=== PATIENT | male | born 1945 | race Hispanic/Latino ===

== ENCOUNTER 2018-12-04 09:39 | Day surgery (SDC) | payer MEDICARE, OTHER ==
[2018-12-04 10:55] LABS: INR 1.03 (0.87-1.13)
[2018-12-04 10:57] LABS: Basophils # (Auto) 0.1 K/mm3 (0.0-0.1); Basophils % (Auto) 0.8 % (0.0-1.8); Eosinophils # (Auto) 0.2 K/mm3 (0.0-0.4); Eosinophils % (Auto) 3.1 % (0.0-4.3); Hematocrit 35.7 % (35.5-45.6); Hemoglobin 11.7 gm/dl (11.8-15.2); Lymphocytes # (Auto) 0.7 K/mm3 (1.2-5.4); Lymphocytes % (Auto) 10.2 % (13.4-35.0); Mean Corpuscular HGB Conc 33 % (32-34); Mean Corpuscular Volume 85 fl (84-94); Monocytes # (Auto) 0.7 K/mm3 (0.0-0.8); Monocytes % (Auto) 9.4 % (0.0-7.3); Platelet Count 303 K/mm3 (140-440); Red Blood Count 4.22 M/mm3 (3.65-5.03); Red Cell Distribution Width 16.3 % (13.2-15.2)
[2018-12-04 11:05] LABS: BUN/Creatinine Ratio 15; Blood Urea Nitrogen 16 mg/dL (9-20); Calcium 8.8 mg/dL (8.4-10.2); Hemolysis Index 45
[2018-12-04] MEDS: NACL 0.9% 500 ML 500 ML IV SCH ×2 (11:19→14:30)
[2018-12-04] MEDS ORDERED: HEPARIN/NS 5000 UNIT/500ML(CATH LAB) 1,000 ML IR ONE (13:55)
[2018-12-04] MEDS ORDERED: ANCEF/STERILE WATER 2 GM/20 ML 2 GM/20 ML SYRINGE IV ONE (13:56)
[2018-12-04] MEDS ORDERED: ZOFRAN ONE (14:34)
[2018-12-04] MEDS: VERSED ONE ×2 (14:51→14:58)
[2018-12-04] MEDS: XYLOCAINE 2% INFILTRATI ONE ×2 (14:51→14:58)
[2018-12-04] MEDS: SUBLIMAZE ONE ×2 (14:51→14:58)
[2018-12-04] MEDS: HEPARIN 10,000 UNITS/10 ML ONE ×3 (14:58→15:10)
[2018-12-04] MEDS: NITROGLYCERIN SYRINGE 3 ML ONE ×2 (14:58→15:01)
[2018-12-04] MEDS: CALAN ONE ×2 (14:58→15:01)
--- NOTE | 2018-12-04 16:44 | Operative Report ---
Operative Report Operative Report: EXAM: 1. Ultrasound-guided access of the left radial artery 2. Third order selection of the right superficial femoral artery with angiography of the right lower extremity 3. Third order selection of the left superficial femoral artery with angiography of the left lower extremity DATE: 12/04/18 PSYCHOLOGY ASSISTANT: VAN ELISE MD INDICATION: 73-year-old male with nonpalpable pedal pulses, morbid obesity, venous issues, who presents for lower extremity angiography. MEDICATIONS: Please see nursing report for full details. CONTRAST: Please see laboratory apparatus glass blower report for full details PROCEDURE: The risks, benefits, and alternatives were discussed with the patient and his ; written informed consent was obtained. The left wrist was prepped and draped in a sterile fashion. Under direct ultrasound guidance, the left radial artery was accessed with a 21-gauge point puncture needle. 0.018 inch wire was passed into the radial artery. 4-5 glidesheath slender was passed into the artery. Radial cocktail was administered. Additional 1500 units of heparin was administered. The right superficial femoral artery was then selected with a 4 Pakistani catheter. Digital subtraction angiography was performed demonstrating runoff. Catheter was retracted to the right common femoral artery and repeat angiography was performed. Catheter was retracted to the right common iliac artery and repeat angiography was performed. The left superficial femoral artery was then selected with a 4 Pakistani catheter. Digital subtraction angiography was performed demonstrating runoff. Catheter was retracted to the left common femoral artery and repeat angiography was performed. Catheter was retracted to the left common iliac artery and repeat angiography was performed. All wires, catheters, and sheaths were removed. TR Band was applied, but due to inadequate hemostasis pressure bandage was applied. FINDINGS: RIGHT LOWER EXTREMITY: The right common iliac artery, external iliac artery, and internal iliac artery are patent. The right common femoral artery, profundofemoral artery, proximal and mid superficial femoral artery are patent. The distal right superficial femoral artery has 20% narrowing. The above the knee popliteal artery is patent. The mid popliteal artery has a 50-60% narrowing. Below the knee popliteal artery is patent. The anterior tibial artery has multifocal high grade 70-90% narrowing's throughout the vessel and is the dominant flow to the foot. The posterior tibial artery is occluded. The tibial peroneal trunk has a focal 50% narrowing and the proximal peroneal artery has a short segment occlusion. The rest of the peroneal artery is without significant narrowing. LEFT LOWER EXTREMITY: Left common iliac artery, external iliac artery, and internal iliac artery are patent. The left common femoral artery, profundofemoral artery, proximal and mid superficial femoral artery are patent. The left distal superficial femoral artery is a 20% narrowing in it. The left above the knee popliteal artery is patent. The left mid popliteal artery has a focal 40-50% narrowing. The below the knee popliteal is patent. The left anterior tibial artery has a 99% narrowing at its ostium and tandem stenoses which are 90% narrowed a few centimeters distal. The rest of the anterior tibial artery is patent but has slow flow due to ostial stenosis. The tibial peroneal trunk has a 70% narrowing within it and is quite long. The peroneal artery has irregularity throughout it probably 20-30% narrowing. The posterior tibial artery becomes occluded approximately 5 cm after takeoff and appears to reconstitute partially from the posterior communicating artery. IMPRESSION: Bilateral lower extremity significant arterial disease.
--- NOTE | 2018-12-04 17:10 | Short Stay Summary ---
Short Stay Documentation Date of service: 12/04/18 Narrative H&P: 73 year old male with bilateral lower extremity wounds and mixed disease. - History Principal diagnosis: PVD with ulceration H&P: obtained from office Past Medical History: PVD - Allergies and Medications Current Medications: Allergies doxycycline Allergy (Verified 12/04/18 10:17) Rash Active Medications Sodium Chloride (Nacl 0.9% 500 Ml) 500 mls @ 50 mls/hr IV DIRECT SHANNON Last Admin: 12/04/18 14:30 Dose: 50 mls/hr Documented by: - Physical exam General appearance: no acute distress Lungs: Normal air movement Gastrointestinal: normal Extremities: abnormal (ulcers of the bilateral lower extremity) - Brief post op/procedure progress note Date of procedure: 12/04/18 Pre-op diagnosis: pvd with ulceration Post-op diagnosis: same Procedure: radial angiogram Anesthesia: local (w/ conscious sedation) Surgeon: VAN ELISE Estimated blood loss: minimal Condition: stable - Hospital course Hospital course: Ready for discharge. - Disposition Condition at discharge: Stable Disposition: [id number] TO HOME OR SELFCARE - Discharge Diagnoses (1) Atherosclerosis of lower extremity with ulceration of ankle Status: Acute (2) Atherosclerosis of left lower extremity with ulceration of ankle Status: Acute (3) Atherosclerosis of right lower extremity with ulceration of calf Status: Acute Short Stay Discharge Plan Activity: advance as tolerated Weight Bearing Status: Weight Bear as Tolerated Diet: diabetic Wound: keep clean and dry Follow up with: NEEL SIEGEL MD [Primary Care Provider] - 7 Days
[2018-12-04 18:07] VITALS: BP 139/63
--- NOTE | 2018-12-05 06:59 | Vascular Lab Report ---
PROCEDURE: VL LORAINE EVALUATION TECHNIQUE: Duplex Doppler ultrasound of either bilateral lower extremity arteries or arterial bypass grafts was performed with image documentation. Noninvasive bilateral physiologic studies of the dis carina posterior tibial and/or anterior tibial/dorsalis pedis arteries for ankle brachial indices was pe rformed. HISTORY: pvd COMPARISONS: None . FINDINGS: RIGHT LOWER EXTREMITY: There are monophasic waveforms in the first digit of the right foot. LEFT LOWER EXTREMITY: There are monophasic waveforms in the first digit of the left foot. IMPRESSION: Monophasic waveforms in the first digits of both feet.. This document is electronically signed by Kal Malik MD., December 05 2018 06:58:18 AM ET
== END 2018-12-04 18:59 | disposition home or self-care (01) ==
LOC: CATHLABREC 09:39
PROVIDERS: ATTEND Radiology Diagnostic Radiology
DX: I70.232 Atherosclerosis of native arteries of right leg with ulceration of calf (principal); I70.243 Atherosclerosis of native arteries of left leg with ulceration of ankle; E66.01 Morbid (severe) obesity due to excess calories; Z79.899 Other long term (current) drug therapy; I70.25 Atherosclerosis of native arteries of other extremities with ulceration; Z68.42 Body mass index [BMI] 45.0-49.9, adult; Z86.73 Personal history of transient ischemic attack (TIA), and cerebral infarction without residual deficits; E78.00 Pure hypercholesterolemia, unspecified; I10 Essential (primary) hypertension; G47.30 Sleep apnea, unspecified; K21.9 Gastro-esophageal reflux disease without esophagitis; Z87.442 Personal history of urinary calculi; M19.90 Unspecified osteoarthritis, unspecified site; F41.9 Anxiety disorder, unspecified; Z98.890 Other specified postprocedural states; Z79.01 Long term (current) use of anticoagulants
CPT/HCPCS: 36247; 36415; 51701; 75716; 80048; 85025; 85610; 85730; 93922; 99156; 99157; C1769; C1887; C1894; J0690; J1644; J2250; J2405; J3010; J7040; Q9967

== ENCOUNTER 2018-12-18 06:31 | Inpatient (IN) | payer MEDICARE, OTHER ==
[2018-12-18 07:37] LABS: Basophils % (Auto) 0.6 % (0.0-1.8); Eosinophils # (Auto) 0.3 K/mm3 (0.0-0.4); Eosinophils % (Auto) 3.2 % (0.0-4.3); Hematocrit 36.9 % (35.5-45.6); Hemoglobin 12.1 gm/dl (11.8-15.2); Lymphocytes # (Auto) 0.8 K/mm3 (1.2-5.4); Lymphocytes % (Auto) 10.5 % (13.4-35.0); Mean Corpuscular HGB Conc 33 % (32-34); Mean Corpuscular Volume 84 fl (84-94); Monocytes # (Auto) 0.6 K/mm3 (0.0-0.8); Platelet Count 256 K/mm3 (140-440); Red Blood Count 4.39 M/mm3 (3.65-5.03); Red Cell Distribution Width 16.1 % (13.2-15.2)
[2018-12-18 07:47] LABS: INR 1.03 (0.87-1.13); Partial Thromboplastin Time 30.2 Sec. (24.2-36.6)
[2018-12-18] MEDS: NACL 0.9% 1000 ML 1,000 ML IV SCH ×2 (07:50→11:21)
[2018-12-18] MEDS ORDERED: VERSED ONE (07:56)
[2018-12-18] MEDS ORDERED: DIPRIVAN 10 MG/ML 1,000 MG/100 ML BOTTLE IV ONE (07:56)
[2018-12-18] MEDS ORDERED: DILAUDID ONE (07:57)
[2018-12-18] MEDS ORDERED: NEO-SYNEPHRINE NS PRN (08:00)
[2018-12-18] MEDS ORDERED: PEPCID IV NR (08:00)
[2018-12-18] MEDS ORDERED: ZOFRAN IV NR (08:00)
--- NOTE | 2018-12-18 08:15 | Anesthesia Consultation ---
Anesthesia Consult and Med Hx Date of service: 12/18/18 - Airway Anesthetic Teeth Evaluation: Poor (denies lose teeth) ROM Head & Neck: Inadequate (mildly decrease neck extension) Mental/Hyoid Distance: Inadequate Mallampati Class: Class IV Intubation Access Assessment: Possibly Difficult - Pulmonary Exam CTA: Yes - Cardiac Exam Cardiac Exam: RRR - Pre-Operative Health Status ASA Pre-Surgery Classification: ASA3 Proposed Anesthetic Plan: MAC - Pulmonary Hx Smoking: Yes (quit 25yrs ago) Hx Respiratory Symptoms: No COPD: No Hx Sleep Apnea: Yes (noncompliant with CPAP) - Cardiovascular System Hx Hypertension: Yes (last dose antihypertensives 5/5 PM) Hx Heart Attack/AMI: No Hx Percutaneous Transluminal Coronary Angioplasty (PTCA): No Hx Cardia Arrhythmia: No Hx Pacemaker: No Hx Peripheral Vascular Disease: Yes - Central Nervous System Hx Neuromuscular Disorder: Yes (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 Patient reports difficulty lying flat 2/2 post nasal drip. Will plan MAC with wedge for patient comfort. Convert to GA if not tolerated.
--- NOTE | 2018-12-18 08:15 | Anesthesia Day of Surgery ---
Anesthesia Day of Surgery - Day of Surgery Patient Examined: Yes Patient H&P Reviewed: Yes Patient is NPO: Yes Beta Blockers: Yes
[2018-12-18] MEDS ORDERED: HEPARIN/NS 5000 UNIT/500ML(CATH LAB) 1,000 ML IR ONE (08:21)
[2018-12-18] MEDS ORDERED: XYLOCAINE 1%/ EPI 1:100,000 INFILTRATI ONE (08:22)
[2018-12-18] MEDS ORDERED: ANCEF/STERILE WATER 2 GM/20 ML 2 GM/20 ML SYRINGE IV ONE (08:22)
[2018-12-18 08:33] LABS: BUN/Creatinine Ratio 14; Blood Urea Nitrogen 15 mg/dL (9-20); Calcium 8.9 mg/dL (8.4-10.2); Hemolysis Index 320
--- NOTE | 2018-12-18 09:25 | Short Stay Summary ---
Short Stay Documentation Date of service: 12/18/18 Narrative H&P: 73 year old male with critical limb ischemia of the right lower extremity with mixed disease presents for revascularization. Anesthesia obtained for assistance due to back pain and elevated BMI. - History Principal diagnosis: atherosclerosis with ulceration of the right lower extremity H&P: obtained from office - Allergies and Medications Current Medications: Allergies doxycycline Allergy (Verified 12/04/18 10:17) Rash Home Medications Medication Instructions Recorded Confirmed Last Taken Type Amlodipine Besylate [Norvasc] 10 mg PO DAILY 12/18/18 12/18/18 1 Day Ago History ~12/17/18 Clopidogrel [Plavix] 75 mg PO DAILY 12/18/18 12/18/18 12/18/18 04:00 History FLUoxetine HCL [Prozac] 20 mg PO DAILY 12/18/18 12/18/18 1 Day Ago History ~12/17/18 Fenofibrate 160 mg PO DAILY 12/18/18 12/18/18 1 Day Ago History ~12/17/18 Glimepiride [Amaryl] 4 mg PO BID 12/18/18 12/18/18 1 Day Ago History ~12/17/18 Losartan [Cozaar] 100 mg PO QDAY 12/18/18 12/18/18 1 Day Ago History ~12/17/18 Metoprolol [Lopressor TAB] 50 mg PO BID 12/18/18 12/18/18 1 Day Ago History ~12/17/18 Oxybutynin [Ditropan] 5 mg PO BID 12/18/18 12/18/18 1 Day Ago History ~12/17/18 Pantoprazole [Protonix TAB] 40 mg PO DAILY 12/18/18 12/18/18 1 Day Ago History ~12/17/18 Pioglitazone [Actos] 15 mg PO QDAY 12/18/18 12/18/18 1 Day Ago History ~12/17/18 Potassium Chloride [Klor-Con M20] 20 m2 PO DAILY 12/18/18 12/18/18 1 Day Ago History ~12/17/18 Pravastatin Sodium [Pravastatin] 20 mg PO DAILY 12/18/18 12/18/18 1 Day Ago History ~12/17/18 Sitagliptin Phosphate [Januvia] 100 mg PO DAILY 12/18/18 12/18/18 1 Day Ago History ~12/17/18 Tamsulosin [Flomax] 0.4 mg PO BID 12/18/18 12/18/18 1 Day Ago History ~12/17/18 Active Medications Famotidine (Pepcid) 20 mg IV ONCE NR Stop: 12/18/18 15:00 Last Admin: 12/18/18 07:58 Dose: 20 mg Documented by: Sodium Chloride (Nacl 0.9% 1000 Ml) 1,000 mls @ 42 mls/hr IV DIRECT SHANNON Last Admin: 12/18/18 07:50 Dose: 42 mls/hr Documented by: Ondansetron HCl (Zofran) 4 mg IV PREOP NR Stop: 12/18/18 13:00 Last Admin: 12/18/18 08:01 Dose: 4 mg Documented by: Phenylephrine HCl (Steven-Synephrine) 2 spray NS PRN PRN PRN Reason: Nasal Congestion - Physical exam General appearance: no acute distress, obese Lungs: Normal air movement Gastrointestinal: normal Extremities: normal temperature, normal color, abnormal (ulceration of calves and right foot) - Brief post op/procedure progress note Date of procedure: 12/18/18 Pre-op diagnosis: CLI right lower extremity Post-op diagnosis: same Procedure: 1. Ultrasound evaluation of the left common femoral artery 2. Ultrasound guided access of the right distal anterior tibial artery 3. Selection of the right anterior tibial artery, right popliteal artery and right superficial femoral artery with angiography of the right lower extremity 4. Atherectomy of the right anterior tibial artery with a 1.5 mm CSI solid atherectomy device with angioplasty with a 3 mm x 220 mm angioplasty balloon 5. Atherectomy of the right popliteal artery with a 1.5 mm CSI solid atherectomy device with angioplasty with a 4 mm x 150 mm iNPACT DCB Anesthesia: local (w/ conscious sedation) Surgeon: VAN ELISE Estimated blood loss: minimal Condition: stable - Hospital course Hospital course: Tolerated procedure well. Admitted due to general anesthesia and morbid obesity and revascularization. Did well with reperfusion of the right foot. Discharged. - Disposition Condition at discharge: Good Disposition: - TO HOME OR SELFCARE - Discharge Diagnoses (1) Atherosclerosis of right lower extremity with ulceration of midfoot Status: Acute (2) Diabetes Status: Acute Qualifiers: Diabetes mellitus type: type 1 (3) HLD (hyperlipidemia) Status: Acute Qualifiers: Hyperlipidemia type: mixed hyperlipidemia Qualified Code(s): E78.2 - Mixed hyperlipidemia (4) HTN (hypertension) Status: Acute Qualifiers: Hypertension type: essential hypertension Qualified Code(s): I10 - Essential (primary) hypertension (5) Obesity hypoventilation syndrome Status: Acute (6) Atherosclerosis of right lower extremity with ulceration of calf Status: Acute Short Stay Discharge Plan Activity: advance as tolerated Weight Bearing Status: Weight Bear as Tolerated Diet: diabetic Wound: keep clean and dry Follow up with: NEEL SIEGEL MD [Primary Care Provider] - 7 Days Prescriptions: Aspirin EC [Aspirin Enteric Coated TAB] 81 mg PO QDAY #30 tablet. Silver Sulfadiazine [Silvadene] 85 gm TP BID #1 cream..g.
[2018-12-18] MEDS ORDERED: QUELICIN ONE (09:30)
[2018-12-18] MEDS ORDERED: NON-FORMULARY (Sitagliptin Phosphate [Januvia] 100 MG) PO SCH (10:00)
[2018-12-18] MEDS ORDERED: NITROGLYCERIN SYRINGE 9 ML ONE (10:56)
[2018-12-18] MEDS ORDERED: CALAN ONE ×2 (10:56→11:11)
[2018-12-18] MEDS: HEPARIN 10,000 UNITS/10 ML ONE ×3 (11:03→11:50)
[2018-12-18] MEDS ORDERED: TRIDIL DRIP 50MG/250ML 50 MG/250 ML BOTTLE ONE (11:11)
[2018-12-18] MEDS ORDERED: NACL 0.9% 1000 ML 1,000 ML ONE (11:11)
[2018-12-18] MEDS ORDERED: BRIDION IV ONE (11:19)
[2018-12-18] MEDS ORDERED: ZEMURON IV ONE (11:19)
[2018-12-18] MEDS ORDERED: DIPRIVAN 10 MG/ML IV ONE (11:22)
[2018-12-18] MEDS ORDERED: HEPARIN/NS 5000 UNIT/500ML(CATH LAB) 500 ML IR ONE (11:26)
[2018-12-18] MEDS ORDERED: NITRO-BID 2% TP ONE ×2 (11:36→15:00)
[2018-12-18] MEDS ORDERED: REGLAN ONE ×2 (12:22→13:25)
[2018-12-18] MEDS ORDERED: SODIUM CHLORIDE FLUSH SYRINGE 10 ML IV PRN (12:29)
[2018-12-18] MEDS ORDERED: D50W (25GM) Syringe IV PRN ×2 (12:29→12:59)
[2018-12-18] MEDS ORDERED: NORCO 5/325 PO PRN (12:29)
[2018-12-18] MEDS ORDERED: ZOFRAN IV PRN (12:29)
[2018-12-18] MEDS ORDERED: TYLENOL PO PRN (12:29)
[2018-12-18] MEDS ORDERED: PROVENTIL IH ONE ×2 (12:30→14:20)
--- NOTE | 2018-12-18 12:39 | Operative Report ---
Operative Report Operative Report: EXAM: 1. Ultrasound evaluation of the left common femoral artery 2. Ultrasound guided access of the right distal anterior tibial artery 3. Selection of the right anterior tibial artery, right popliteal artery and right superficial femoral artery with angiography of the right lower extremity 4. Atherectomy of the right anterior tibial artery with a 1.5 mm CSI solid atherectomy device with angioplasty with a 3 mm x 220 mm angioplasty balloon 5. Atherectomy of the right popliteal artery with a 1.5 mm CSI solid atherectomy device with angioplasty with a 4 mm x 150 mm iNPACT DCB DATE: 12/18/18 STUDIO OPERATOR: VAN ELISE MD INDICATION: Critical limb ischemia of the right lower extremity in a patient with severe morbid obesity. MEDICATIONS: Please see nursing report for full details. CONTRAST: Please see malthouse laborer report for full details. PROCEDURE: The risks, benefits, and alternatives were discussed with the patient; written informed consent was obtained from the patient and his family. The patient was brought to the [facility] and his groins were prepped and draped in sterile fashion. Although the initial attempt by anesthesia was to perform MAC, patient's back pain and nausea prevented this from occurring and instead general anesthesia was performed. The left groin was evaluated with ultrasound. The larger, more powerful vascular ultrasound machine was brought in due to limitations of the standard ultrasound machine. Ultrasound was able to identify his left superficial femoral artery, but the left common femoral artery had too much to post tissue on top of it and was greater than 10 cm deep. Unfortunately due to the patient's height, and due to device length limitations, radial access would not be able to appropriately treat his tibial vessels. I then decided on performing a ANNA procedure. The right foot was prepped and draped in a sterile fashion. Under direct ultrasound guidance, the right anterior tibial artery was assessed and was patent. At the level of the ankle, the anterior tibial artery was accessed with a 21-gauge micropuncture needle. V18 wire was passed through the needle through the anterior tibial artery. 4/5 estonian glidesheath slender was passed over the wire. Radial cocktail was administered. Additional nitroglycerin was administered. Throughout the case, every few minutes, 200-400 micrograms of nitroglycerin was injected through the sheath. Wire was then advanced into the popliteal artery and the superficial femoral artery. Rolando Blazer was advanced over the wire and digital subtraction angiography was performed from the superficial femoral artery. Sheath runoff was performed. The anterior tibial artery had multifocal 70-99% narrowing throughout the vessel. Through collaterals, the dorsalis pedis filled immediately distal to the sheath access site. The posterior tibial artery was occluded throughout its course after the first 5 cm. The tibioperoneal trunk had a 70% narrowing in the distal portion of the vessel which then tapered into a 90% narrowing. The peroneal artery was proximally occluded (short segment) with the mid and distal ports of the vessel having a normal caliber. The popliteal artery had a 80% narrowing at its midportion. The superficial femoral artery at the adductor's canal had a 30-40% narrowing associated with it. Since this was a pedal approach, I wanted to have the access site limited. This limited some of the devices. Wire was exchanged for a Viperwire. CSI atherectomy was performed with a 1.5 mm solid atherectomy device in the anterior tibial artery on low and medium settings, and at medium and high in the popliteal artery. 3 mm x 220 mm angioplasty balloon was used to perform angioplasty at 4 kyle throughout the length of the anterior tibial artery. 4 mm x 150 mm iNPACT DCB is then used to perform angioplasty at the popliteal artery. Unfortunately, the 5 mm DCB was too large for the sheath size. At this point, digital subtraction angiography was performed demonstrating less than 10% residual narrowing of the anterior tibial artery, 20-30% residual narrowing of the popliteal artery, and no change in the tibioperoneal trunk and peroneal and posterior tibial runoff. Additional nitroglycerin was injected and the sheath was removed with pressure applied until hemostasis was achieved. Patient tolerated the procedure well. No immediate postprocedural complication. FINDINGS: Please see procedure note above. IMPRESSION: 1. Successful ANNA (tibiopedal arterial minimally invasive retrograde revascularization) procedure with atherectomy and angioplasty of the right anterior tibial artery and popliteal artery.
[2018-12-18] MEDS ORDERED: NON-FORMULARY (Fenofibrate [Fenofibrate] 160 MG) PO SCH (12:45)
--- NOTE | 2018-12-18 12:58 | Consultation ---
History of Present Illness - Reason for Consult Consult date: 12/18/18 Diabetes Requesting physician: VAN ELISE - History of Present Illness 73 YO Male with DM, HTN, JAMIE, Noncompliant with CPAP, Obesity Hypoventilation Syndrome, GERD, BPH, HLD, CVA admitted for revascularization. Consult placed by Dr. Elise for medical management. Pt seen and evaluated upon arrival to his room. Pt resting comfortable. Pt denies fever, chills, CP, Palpitations, NVD, Trauma, Skin Rash, Productive Cough, or recent ill contacts. No reported nursing events. Pt denies pain. Past History Past Medical History: diabetes, GERD, hypertension, hyperlipidemia, stroke Past Surgical History: Other (Vascular surgery) Social history: , lives with family Family history: diabetes, hypertension Medications and Allergies Allergies Allergy/AdvReac Type Severity Reaction Status Date / Time doxycycline Allergy Rash Verified 12/04/18 10:17 Home Medications Medication Instructions Recorded Confirmed Last Taken Type Amlodipine Besylate [Norvasc] 10 mg PO DAILY 12/18/18 12/18/18 1 Day Ago History ~12/17/18 Aspirin EC [Aspirin Enteric Coated 81 mg PO QDAY #30 tablet. 12/18/18 Unknown Rx TAB] Clopidogrel [Plavix] 75 mg PO DAILY 12/18/18 12/18/18 12/18/18 04:00 History FLUoxetine HCL [Prozac] 20 mg PO DAILY 12/18/18 12/18/18 1 Day Ago History ~12/17/18 Fenofibrate 160 mg PO DAILY 12/18/18 12/18/18 1 Day Ago History ~12/17/18 Glimepiride [Amaryl] 4 mg PO BID 12/18/18 12/18/18 1 Day Ago History ~12/17/18 Losartan [Cozaar] 100 mg PO QDAY 12/18/18 12/18/18 1 Day Ago History ~12/17/18 Metoprolol [Lopressor TAB] 50 mg PO BID 12/18/18 12/18/18 1 Day Ago History ~12/17/18 Oxybutynin [Ditropan] 5 mg PO BID 12/18/18 12/18/18 1 Day Ago History ~12/17/18 Pantoprazole [Protonix TAB] 40 mg PO DAILY 12/18/18 12/18/18 1 Day Ago History ~12/17/18 Pioglitazone [Actos] 15 mg PO QDAY 12/18/18 12/18/18 1 Day Ago History ~12/17/18 Potassium Chloride [Klor-Con M20] 20 m2 PO DAILY 12/18/18 12/18/18 1 Day Ago History ~12/17/18 Pravastatin Sodium [Pravastatin] 20 mg PO DAILY 12/18/18 12/18/18 1 Day Ago History ~12/17/18 Silver Sulfadiazine [Silvadene] 85 gm TP BID #1 cream..g. 12/18/18 Unknown Rx Sitagliptin Phosphate [Januvia] 100 mg PO DAILY 12/18/18 12/18/18 1 Day Ago History ~12/17/18 Tamsulosin [Flomax] 0.4 mg PO BID 12/18/18 12/18/18 1 Day Ago History ~12/17/18 Active Meds: Active Medications Acetaminophen (Tylenol) 650 mg PO Q4H PRN PRN Reason: Pain MILD(1-3)/Fever >100.5/[place] Acetaminophen/Hydrocodone Bitart ([place] 5/325) 2 each PO Q6H PRN PRN Reason: Pain, Moderate (4-6) Albuterol (Proventil) 2.5 mg IH ONCE ONE Stop: 12/18/18 12:21 Amlodipine Besylate (Norvasc) 10 mg PO DAILY [facility] Aspirin (Halfprin Ec) 81 mg PO QDAY [facility] Clopidogrel Bisulfate (Plavix) 75 mg PO DAILY [facility] Dextrose (D50w (25gm) Syringe) 50 ml IV PRN PRN PRN Reason: Hypoglycemia Enoxaparin Sodium (Lovenox) 30 mg SUB-Q QDAY [facility] Famotidine (Pepcid) 20 mg IV ONCE NR Stop: 12/18/18 15:00 Last Admin: 12/18/18 07:58 Dose: 20 mg Documented by: Fluoxetine HCl (Prozac) 20 mg PO DAILY [facility] Glimepiride (Amaryl) 4 mg PO BID [facility] Sodium Chloride (Nacl 0.9% 1000 Ml) 1,000 mls @ 42 mls/hr IV DIRECT SHANNON Last Admin: 12/18/18 11:21 Dose: 42 mls/hr Documented by: Sodium Chloride (Nacl 0.45% 1000 Ml) 1,000 mls @ 75 mls/hr IV DIRECT SHANNON Metoclopramide HCl (Reglan) 10 mg IV ONCE ONE Stop: 12/18/18 12:16 Metoprolol Tartrate (Lopressor) 50 mg PO BID [facility] Miscellaneous Medication (Fenofibrate [Fenofibrate]) 160 mg PO DAILY [facility] Miscellaneous Medication (Losartan [Cozaar]) 100 mg PO QDAY [facility] Miscellaneous Medication (Pravastatin Sodium [Pravastatin]) 20 mg PO DAILY [facility] Miscellaneous Medication (Sitagliptin Phosphate [Januvia]) 100 mg PO DAILY [facility] Ondansetron HCl (Zofran) 4 mg IV PREOP NR Stop: 12/18/18 13:00 Last Admin: 12/18/18 08:01 Dose: 4 mg Documented by: Ondansetron HCl (Zofran) 4 mg IV Q4H PRN PRN Reason: Nausea And Vomiting Oxybutynin Chloride (Ditropan) 5 mg PO BID [facility] Pantoprazole Sodium (Protonix) 40 mg PO DAILY [facility] Phenylephrine HCl (Steven-Synephrine) 2 spray NS PRN PRN PRN Reason: Nasal Congestion Pioglitazone HCl (Actos) 15 mg PO QDAY [facility] Potassium Chloride (K-Dur) meq PO DAILY [facility] Sodium Chloride (Sodium Chloride Flush Syringe 10 Ml) 10 ml IV BID [facility] Sodium Chloride (Sodium Chloride Flush Syringe 10 Ml) 10 ml IV PRN PRN PRN Reason: LINE FLUSH Tamsulosin HCl (Flomax) 0.4 mg PO BID [facility] Review of Systems Constitutional: no weight loss, no weight gain, no fever Ears, nose, mouth and throat: no ear pain, no ear discharge, no tinnitis, no decreased hearing Cardiovascular: no chest pain, no orthopnea, no palpitations, no syncope, no shortness of breath Respiratory: no cough, no cough with sputum, no excessive sputum, no shortness of breath Gastrointestinal: no abdominal pain, no nausea, no diarrhea, no change in bowel habits Genitourinary Male: no hematuria, no flank pain, no urinary frequency, no urinary hesitancy Rectal: no pain, no incontinence, no bleeding Musculoskeletal: no neck stiffness, no neck pain, no shooting arm pain, no low back pain Integumentary: no rash, no pruritis, no redness, no sores, no wounds Neurological: no head injury, no paralysis, no weakness, no parathesias, no numbness, no tingling Psychiatric: no anxiety, no memory loss, no change in sleep habits, no sleep disturbances, no insomnia, no hypersomnia Endocrine: no cold intolerance, no heat intolerance, no polyphagia, no polydipsia, no polyuria, no nocturia Hematologic/Lymphatic: no easy bruising, no easy bleeding, no lymphadenopathy Allergic/Immunologic: no urticaria, no allergic rhinitis, no wheezing Exam - Constitutional Vitals: Temp Pulse Resp BP Pulse Ox 97.5 F L 67 13 128/53 95 12/18/18 12:14 12/18/18 12:45 12/18/18 12:45 12/18/18 12:45 12/18/18 12:45 General appearance: Present: no acute distress, well-nourished - EENT Eyes: Present: PERRL ENT: hearing intact, clear oral mucosa - Neck Neck: Present: supple, normal ROM - Respiratory Respiratory effort: normal Respiratory: bilateral: CTA - Cardiovascular Heart Sounds: Present: S1 & S2. Absent: rub, click - Extremities Extremities: pulses symmetrical, No edema Peripheral Pulses: within normal limits - Abdominal General gastrointestinal: Present: soft, non-tender, non-distended, normal bowel sounds Male genitourinary: Present: normal - Integumentary Integumentary: Present: clear, warm, dry - Musculoskeletal Musculoskeletal: gait normal, strength equal bilaterally - Psychiatric Psychiatric: appropriate mood/affect, intact judgment & insight - Neurologic Neurologic: CNII-XII intact, moves all extremities Results - Labs CBC & Chem 7: 12/19/18 07:28 12/18/18 08:48 Labs: Abnormal lab results 12/18/18 12/18/18 Range/Units 07:21 07:21 RDW 16.1 H (13.2-15.2) % Lymph % (Auto) 10.5 L (13.4-35.0) % [place] % (Auto) 8.0 H (0.0-7.3) % Lymph # 0.8 L (1.2-5.4) K/mm3 Seg Neutrophils % 77.7 H (40.0-70.0) % Potassium 6.3 H* (3.6-5.0) mmol/L Glucose 103 H (75-100) mg/dL Assessment and Plan - Patient Problems (1) Diabetes Current Visit: Yes Status: Acute Qualifiers: Diabetes mellitus type: type 1 Plan to address problem: ADA diet, modified high dose insulin sliding scale, accu check, (2) Obesity hypoventilation syndrome Current Visit: Yes Status: Acute Plan to address problem: supplemental oxygen, nebulizer therapy, pulmonary toilet, early ambulation, NIPPV as clinically indicated. Pt is noncompliant. (3) HTN (hypertension) Current Visit: Yes Status: Acute Qualifiers: Hypertension type: essential hypertension Qualified Code(s): I10 - Essential (primary) hypertension Plan to address problem: Monitor bp q shift, continue medical management (4) HLD (hyperlipidemia) Current Visit: Yes Status: Acute Qualifiers: Hyperlipidemia type: mixed hyperlipidemia Qualified Code(s): E78.2 - Mixed hyperlipidemia Plan to address problem: Statin therapy, low cholesterol diet, risk factor reduction,
[2018-12-18] MEDS ORDERED: AMARYL PO SCH (13:00)
[2018-12-18] MEDS ORDERED: NACL 0.45% 1000 ML 1,000 ML IV SCH (13:23)
[2018-12-18] MEDS ORDERED: MYLICON PO ONE (14:00)
[2018-12-18] MEDS ORDERED: REGLAN IV ONE (14:00)
[2018-12-18] MEDS: LOVENOX SUB-Q SCH (15:16)
[2018-12-18] MEDS: HALFPRIN EC PO SCH (15:17)
[2018-12-18] MEDS: PROzac PO SCH (15:17)
[2018-12-18] MEDS: K-DUR PO SCH (15:17)
[2018-12-18] MEDS: PROTONIX PO SCH (15:17)
--- NOTE | 2018-12-18 15:25 | Post Anesthesia Evaluation ---
- Post Anesthesia Evaluation Patient Participated: Yes Airway Patent: Yes Stable Respiratory Function: Yes Nausea/Vomiting: No Temp > 96.8F: Yes Pain Manageable: Yes Adequeate Hydration: Yes Anesthesia Complications: No Other Comments: Patient started on incentive spirometry in PACU for SpO2 low 90s 2/2 poor respiratory effort. SpO2 imporved to mid-90s with continued use.
[2018-12-18] MEDS: DITROPAN PO SCH ×2 (17:05→22:45)
[2018-12-18] MEDS: HumaLOG SUB-Q SCH (17:16)
[2018-12-18] MEDS ORDERED: PRAVACHOL PO SCH (22:00)
[2018-12-18] MEDS: THERMAZENE 50 GRAM TP SCH (22:00)
[2018-12-18] MEDS: SODIUM CHLORIDE FLUSH SYRINGE 10 ML IV SCH (22:46)
[2018-12-18] MEDS: FLOMAX PO SCH (22:46)
[2018-12-19] MEDS: HumaLOG SUB-Q SCH ×2 (07:20)
[2018-12-19 07:25] LABS: BUN/Creatinine Ratio 12; Basophils % (Auto) 0.2 % (0.0-1.8); Blood Urea Nitrogen 13 mg/dL (9-20); Eosinophils # (Auto) 0.2 K/mm3 (0.0-0.4); Hematocrit 32.5 % (35.5-45.6); Hemoglobin 10.6 gm/dl (11.8-15.2); Hemolysis Index 1; Lymphocytes # (Auto) 0.8 K/mm3 (1.2-5.4); Lymphocytes % (Auto) 8.5 % (13.4-35.0); Mean Corpuscular HGB Conc 32 % (32-34); Mean Corpuscular Volume 85 fl (84-94); Monocytes # (Auto) 0.7 K/mm3 (0.0-0.8); Monocytes % (Auto) 7.3 % (0.0-7.3); Platelet Count 217 K/mm3 (140-440); Red Blood Count 3.83 M/mm3 (3.65-5.03); Red Cell Distribution Width 16.3 % (13.2-15.2)
[2018-12-19 08:43] VITALS: BP 139/39
--- NOTE | 2018-12-19 09:30 | Discharge Summary ---
Providers - Providers Date of Admission: 12/18/18 12:29 Date of discharge: 12/19/18 Attending physician: VAN ELISE 12/18/18 12:29 Consult to Physician [CONS] Routine Comment: Consulting Provider: ARIS AHUMADA Physician Instructions: Reason For Exam: medical management/diabetes Primary care physician: NEEL SIEGEL Hospitalization Condition: Good Hospital course: Patient status post revascularization of the right lower extremity. Patient is doing well following his revascularization procedure with warm reperfused right lower leg. No complaints of pain. Disposition: DC- TO HOME OR SELFCARE Core Measure Documentation - Palliative Care Palliative Care/ Comfort Measures: Not Applicable - Core Measures Any of the following diagnoses?: none Exam - Constitutional Vitals: Temp Pulse Resp BP Pulse Ox 98.0 F 66 20 139/39 96 12/19/18 08:40 12/19/18 08:40 12/19/18 08:40 12/19/18 08:40 12/19/18 08:40 General appearance: Present: no acute distress, obese - EENT Eyes: Present: EOM intact ENT: hearing intact - Neck Neck: Present: supple, normal ROM - Respiratory Respiratory effort: normal - Extremities Extremities: abnormal (RLE wounds) - Abdominal General gastrointestinal: Present: deferred Male genitourinary: Present: deferred - Rectal Rectal Exam: deferred - Musculoskeletal Musculoskeletal: generalized weakness - Psychiatric Psychiatric: appropriate mood/affect, cooperative Plan Activity: advance as tolerated Weight Bearing Status: Weight Bear as Tolerated Diet: regular Wound: keep clean and dry, per your surgeon's advice, per wound nurse instructions Follow up with: NEEL SIEGEL MD [Primary Care Provider] - 7 Days Prescriptions: Aspirin EC [Aspirin Enteric Coated TAB] 81 mg PO QDAY #30 tablet. Silver Sulfadiazine [Silvadene] 85 gm TP BID #1 cream..g.
[2018-12-19] MEDS: PROzac PO SCH (09:57)
[2018-12-19] MEDS: K-DUR PO SCH (09:57)
[2018-12-19] MEDS: DITROPAN PO SCH (09:57)
[2018-12-19] MEDS: HALFPRIN EC PO SCH (09:57)
[2018-12-19] MEDS: LOVENOX SUB-Q SCH (09:57)
[2018-12-19] MEDS: PROTONIX PO SCH (09:57)
[2018-12-19] MEDS ORDERED: PLAVIX PO SCH (10:00)
[2018-12-19] MEDS ORDERED: COZAAR PO SCH (10:00)
[2018-12-19] MEDS ORDERED: TRICOR PO SCH (10:00)
[2018-12-19] MEDS ORDERED: NON-FORMULARY (Losartan [Cozaar] 100 MG) PO SCH (10:00)
[2018-12-19] MEDS ORDERED: NORVASC PO SCH (10:00)
[2018-12-19] MEDS ORDERED: ACTOS PO SCH (10:00)
[2018-12-19] MEDS: THERMAZENE 50 GRAM TP SCH (10:46)
[2018-12-19] MEDS: FLOMAX PO SCH (10:46)
[2018-12-19] MEDS: SODIUM CHLORIDE FLUSH SYRINGE 10 ML IV SCH (10:46)
--- NOTE | 2018-12-19 11:11 | Progress Note ---
Assessment and Plan Assessment and plan: PAD with ischemia right leg s/p revascularization right lower ext For discharge today Hypertension Monitor BP Hyperlipidemia Full code status History Interval history: Feels better No more pain right leg. Hospitalist Physical - Physical exam Narrative exam: Gen: Not in acute distress, sitting up in bed, HEENT: Normocephalic, atraumatic Neck: supple, no JVD Heart: S1 and S2 reg, no murmurs, rubs or gallop Lungs: Clear, no crackles, no wheeze Abd: soft, non tender, non distended, normal BS Ext: No edema, no clubbing, no cyanosis, Neuro: Awake,alert, oriented x 3, moves all ext, non focal Psych:Normal mood - Constitutional Vitals: Temp Pulse Resp BP Pulse Ox 98.0 F 66 20 139/39 96 12/19/18 08:40 12/19/18 08:40 12/19/18 08:40 12/19/18 08:40 12/19/18 08:40 General appearance: Present: no acute distress, obese Results - Labs CBC & Chem 7: 12/19/18 07:28 12/19/18 07:28 Labs: Laboratory Last Values WBC 9.0 K/mm3 (4.5-11.0) 12/19/18 07:28 RBC 3.83 M/mm3 (3.65-5.03) 12/19/18 07:28 Hgb 10.6 gm/dl (11.8-15.2) L 12/19/18 07:28 Hct 32.5 % (35.5-45.6) L 12/19/18 07:28 MCV 85 fl (84-94) 12/19/18 07:28 MCH 28 pg (28-32) 12/19/18 07:28 MCHC 32 % (32-34) 12/19/18 07:28 RDW 16.3 % (13.2-15.2) H 12/19/18 07:28 Plt Count 217 K/mm3 (140-440) 12/19/18 07:28 Lymph % (Auto) 8.5 % (13.4-35.0) L 12/19/18 07:28 [place] % (Auto) 7.3 % (0.0-7.3) 12/19/18 07:28 Eos % (Auto) 2.0 % (0.0-4.3) 12/19/18 07:28 Baso % (Auto) 0.2 % (0.0-1.8) 12/19/18 07:28 Lymph # 0.8 K/mm3 (1.2-5.4) L 12/19/18 07:28 [place] # 0.7 K/mm3 (0.0-0.8) 12/19/18 07:28 Eos # 0.2 K/mm3 (0.0-0.4) 12/19/18 07:28 Baso # 0.0 K/mm3 (0.0-0.1) 12/19/18 07:28 Seg Neutrophils % 82.0 % (40.0-70.0) H 12/19/18 07:28 Seg Neutrophils # 7.4 K/mm3 (1.8-7.7) 12/19/18 07:28 PT 14.1 Sec. (12.2-14.9) 12/18/18 07:21 INR 1.03 (0.87-1.13) 12/18/18 07:21 APTT 30.2 Sec. (24.2-36.6) 12/18/18 07:21 Sodium 141 mmol/L (137-145) 12/19/18 07:28 Potassium 3.8 mmol/L (3.6-5.0) 12/19/18 07:28 Chloride 103.4 mmol/L (98-107) 12/19/18 07:28 Carbon Dioxide 28 mmol/L (22-30) 12/19/18 07:28 13 mmol/L 12/19/18 07:28 BUN 13 mg/dL (9-20) 12/19/18 07:28 1.1 mg/dL (0.8-1.5) 12/19/18 07:28 Estimated GFR > 60 ml/min 12/19/18 07:28 12 % 12/19/18 07:28 Glucose 73 mg/dL (75-100) L 12/19/18 07:28 POC Glucose 76 (70-105) 12/19/18 07:24 Calcium 8.0 mg/dL (8.4-10.2) L 12/19/18 07:28 Active Medications - Current Medications Current Medications: Generic Name Dose Route Start Last Admin Trade Name Freq PRN Reason Stop Dose Admin Acetaminophen 650 mg 12/18/18 12:29 Tylenol PO Q4H PRN Pain MILD(1-3)/Fever >100.5/[place] Acetaminophen/Hydrocodone Bitart 2 each 12/18/18 12:29 [place] 5/325 PO Q6H PRN Pain, Moderate (4-6) Amlodipine Besylate 10 mg 12/19/18 10:00 12/19/18 09:57 Norvasc PO 10 mg DAILY SHANNON Administration Aspirin 81 mg 12/18/18 14:00 12/19/18 09:57 Halfprin Ec PO 81 mg QDAY SHANNON Administration Clopidogrel Bisulfate 75 mg 12/19/18 10:00 12/19/18 10:46 Plavix PO 75 mg DAILY SHANNON Administration Dextrose 50 ml 12/18/18 12:59 D50w (25gm) Syringe IV PRN PRN Hypoglycemia Enoxaparin Sodium 30 mg 12/18/18 14:00 12/19/18 09:57 Lovenox SUB-Q 30 mg QDAY SHANNON Administration Fenofibrate 145 mg 12/19/18 10:00 12/19/18 09:57 Tricor PO 145 mg DAILY SHANNON Administration Fluoxetine HCl 20 mg 12/18/18 14:00 12/19/18 09:57 Prozac PO 20 mg DAILY [facility]ON Administration Sodium Chloride 1,000 mls @ 75 mls/hr 12/18/18 13:23 12/18/18 17:02 Nacl 0.45% 1000 Ml IV 75 mls/hr DIRECT SHANNON Administration Insulin Human Lispro 0 unit 12/18/18 18:00 12/19/18 07:20 Humalog SUB-Q Not Given Q6HR [facility] Protocol Losartan Potassium 100 mg 12/19/18 10:00 12/19/18 09:57 Cozaar PO 100 mg QDAY [facility]ON Administration Metoprolol Tartrate 50 mg 12/19/18 13:00 Lopressor PO BID [facility]ON Ondansetron HCl 4 mg 12/18/18 12:29 Zofran IV Q4H PRN Nausea And Vomiting Oxybutynin Chloride 5 mg 12/18/18 14:00 12/19/18 09:57 Ditropan PO 5 mg BID [facility]ON Administration Pantoprazole Sodium 40 mg 12/18/18 15:00 12/19/18 09:57 Protonix PO 40 mg DAILY [facility] Administration Phenylephrine HCl 2 spray 12/18/18 08:00 Steven-Synephrine NS PRN PRN Nasal Congestion Potassium Chloride 20 meq 12/18/18 14:00 12/19/18 09:57 K-Dur PO 20 meq DAILY [facility] Administration Pravastatin Sodium 20 mg 12/18/18 22:00 12/18/18 22:46 Pravachol PO 20 mg QHS [facility]ON Administration Silver Sulfadiazine 1 applic 12/18/18 22:00 12/19/18 10:46 Thermazene 50 Gram TP 1 applic BID [facility]ON Administration Sodium Chloride 10 ml 12/18/18 22:00 12/19/18 10:46 Sodium Chloride Flush Syringe 10 Ml IV 10 ml BID [facility]ON Administration Sodium Chloride 10 ml 12/18/18 12:29 Sodium Chloride Flush Syringe 10 Ml IV PRN PRN LINE FLUSH Tamsulosin HCl 0.4 mg 12/18/18 22:00 12/19/18 10:46 Flomax PO 0.4 mg BID SHANNON Administration
[2018-12-19] MEDS ORDERED: NON-FORMULARY (Pravastatin Sodium [Pravastatin] 20 MG) PO SCH (12:45)
[2018-12-19] MEDS ORDERED: LOPRESSOR PO SCH (13:00)
== END 2018-12-19 12:21 | disposition home or self-care (01) | DRG 271 ==
LOC: CATHLABREC 06:31 → 4A 12:29
PROVIDERS: ADMIT Radiology Diagnostic Radiology; ATTEND Radiology Diagnostic Radiology
PROC: 04CM3ZZ Extirpation of Matter from Right Popliteal Artery, Percutaneous Approach (ICD-10-PCS; principal; 2018-12-18)
PROC: 04CP3ZZ Extirpation of Matter from Right Anterior Tibial Artery, Percutaneous Approach (ICD-10-PCS; 2018-12-18)
PROC: 047P3ZZ Dilation of Right Anterior Tibial Artery, Percutaneous Approach (ICD-10-PCS; 2018-12-18)
PROC: 047M3Z1 Dilation of Right Popliteal Artery using Drug-Coated Balloon, Percutaneous Approach (ICD-10-PCS; 2018-12-18)
PROC: B44HZZZ Ultrasonography of Bilateral Lower Extremity Arteries (ICD-10-PCS; 2018-12-18)
PROC: B41F1ZZ Fluoroscopy of Right Lower Extremity Arteries using Low Osmolar Contrast (ICD-10-PCS; 2018-12-18)
DX: E11.51 Type 2 diabetes mellitus with diabetic peripheral angiopathy without gangrene (principal); Z68.42 Body mass index [BMI] 45.0-49.9, adult; E66.2 Morbid (severe) obesity with alveolar hypoventilation; I70.239 Atherosclerosis of native arteries of right leg with ulceration of unspecified site; I10 Essential (primary) hypertension; K21.9 Gastro-esophageal reflux disease without esophagitis; N40.0 Benign prostatic hyperplasia without lower urinary tract symptoms; E78.2 Mixed hyperlipidemia; Z83.3 Family history of diabetes mellitus; Z87.891 Personal history of nicotine dependence; Z86.73 Personal history of transient ischemic attack (TIA), and cerebral infarction without residual deficits; Z82.49 Family history of ischemic heart disease and other diseases of the circulatory system; Z80.9 Family history of malignant neoplasm, unspecified; Z88.1 Allergy status to other antibiotic agents; Z79.899 Other long term (current) drug therapy; Z79.82 Long term (current) use of aspirin; Z91.14 Patient's other noncompliance with medication regimen
CPT/HCPCS: 36415; 37225; 37229; 75710; 76937; 80048; 82962; 84132; 85025; 85610; 85730; 94760; 96374; 96375; G0378; A9270-GY; C1724; C1725; C1769; C1887; C1894; C2623; J0330; J0690; J1170; J1644; J1650; J2250; J2405; J2704; J2765; J7030; Q9967

== ENCOUNTER 2019-03-12 06:33 | Day surgery (SDC) | payer MEDICARE, OTHER ==
[2019-03-12] MEDS ORDERED: XYLOCAINE CARDIAC IV ONE (07:39)
[2019-03-12] MEDS ORDERED: VERSED ONE (07:40)
[2019-03-12] MEDS ORDERED: DILAUDID ONE (07:40)
[2019-03-12] MEDS ORDERED: DIPRIVAN 10 MG/ML IV ONE ×3 (07:44)
[2019-03-12] MEDS ORDERED: DECADRON ONE (08:00)
[2019-03-12] MEDS ORDERED: NACL 0.9% 1000 ML 1,000 ML IV SCH (08:00)
[2019-03-12] MEDS ORDERED: ZOFRAN ONE (08:00)
[2019-03-12 08:13] LABS: Basophils % (Auto) 0.4 % (0.0-1.8); Eosinophils # (Auto) 0.3 K/mm3 (0.0-0.4); Eosinophils % (Auto) 4.1 % (0.0-4.3); Hematocrit 38.3 % (35.5-45.6); Hemoglobin 12.4 gm/dl (11.8-15.2); Lymphocytes # (Auto) 0.8 K/mm3 (1.2-5.4); Lymphocytes % (Auto) 11.9 % (13.4-35.0); Mean Corpuscular HGB Conc 32 % (32-34); Mean Corpuscular Volume 86 fl (84-94); Monocytes # (Auto) 0.6 K/mm3 (0.0-0.8); Monocytes % (Auto) 9.1 % (0.0-7.3); Platelet Count 211 K/mm3 (140-440); Red Blood Count 4.46 M/mm3 (3.65-5.03); Red Cell Distribution Width 17.7 % (13.2-15.2)
[2019-03-12] MEDS ORDERED: HEPARIN/NS 5000 UNIT/500ML(CATH LAB) 500 ML IR ONE (08:14)
[2019-03-12] MEDS ORDERED: XYLOCAINE 2% INFILTRATI ONE (08:14)
[2019-03-12 08:18] LABS: BUN/Creatinine Ratio 14; Blood Urea Nitrogen 14 mg/dL (9-20); Calcium 9.3 mg/dL (8.4-10.2); Hemolysis Index 5; INR 1.13 (0.87-1.13)
[2019-03-12 08:19] LABS: Partial Thromboplastin Time 27.3 Sec. (24.2-36.6)
[2019-03-12] MEDS ORDERED: CALAN ONE ×2 (08:30→09:20)
[2019-03-12] MEDS ORDERED: NITROGLYCERIN SYRINGE 6 ML ONE (08:31)
[2019-03-12] MEDS ORDERED: NACL 0.9% 1000 ML 1,000 ML ONE (08:31)
[2019-03-12] MEDS ORDERED: ANCEF/STERILE WATER 2 GM/20 ML 2 GM/20 ML SYRINGE IV ONE (08:31)
[2019-03-12] MEDS ORDERED: TRIDIL DRIP 50MG/250ML 50 MG/250 ML BOTTLE ONE (09:20)
[2019-03-12] MEDS: HEPARIN 10,000 UNITS/10 ML ONE ×3 (09:43→10:30)
[2019-03-12] MEDS ORDERED: DIPRIVAN 10 MG/ML 1,000 MG/100 ML BOTTLE IV ONE (10:13)
[2019-03-12] MEDS ORDERED: PLAVIX ONE (11:28)
[2019-03-12] MEDS ORDERED: NITRO-BID 2% TP ONE (11:28)
[2019-03-12] MEDS ORDERED: BABY ASPIRIN ONE (11:28)
[2019-03-12] MEDS ORDERED: ALUM-MAG HYDROX-SIMETH 200-200-20MG/5ML ONE (11:43)
--- NOTE | 2019-03-12 11:54 | Short Stay Summary ---
Short Stay Documentation Date of service: 03/12/19 Narrative H&P: 73-year-old male with critical limb ischemia of his right lower extremity with severe morbid obesity preventing femoral access to treat his lower extremities who is status post revascularization of his right lower extremity 1 with partial improvement of his foot and now presents for his second revascularization procedure. - History Principal diagnosis: Critical limb ischemia H&P: obtained from office - Allergies and Medications Current Medications: Allergies doxycycline Allergy (Verified 12/04/18 10:17) Rash Home Medications Medication Instructions Recorded Confirmed Last Taken Type Amlodipine Besylate [Norvasc] 10 mg PO DAILY 12/18/18 03/12/19 03/12/19 History 1 tab Aspirin EC [Aspirin Enteric Coated 81 mg PO QDAY #30 tablet.dr 12/18/18 03/12/19 03/11/19 Rx TAB] 1 tab Clopidogrel [Plavix] 75 mg PO DAILY 12/18/18 03/12/19 03/12/19 History 1 tab FLUoxetine HCL [Prozac] 20 mg PO DAILY 12/18/18 03/12/19 03/11/19 History 1 tab Fenofibrate 160 mg PO DAILY 12/18/18 03/12/19 03/11/19 History 1 tab Glimepiride [Amaryl] 4 mg PO BID 12/18/18 03/12/19 03/11/19 History 1 tab Losartan [Cozaar] 100 mg PO QDAY 12/18/18 03/12/19 03/11/19 History 1 tab Metoprolol [Lopressor TAB] 50 mg PO BID 12/18/18 03/12/19 03/12/19 History 1 tab Oxybutynin [Ditropan] 5 mg PO BID 12/18/18 03/12/19 03/11/19 History 1 tab Pantoprazole [Protonix TAB] 40 mg PO DAILY 12/18/18 03/12/19 03/11/19 History 1 tab Pioglitazone [Actos] 15 mg PO QDAY 12/18/18 03/12/19 03/11/19 History 1 tab Potassium Chloride [Klor-Con M20] 20 m2 PO DAILY 12/18/18 03/12/19 03/11/19 History 1 tab Pravastatin Sodium [Pravastatin] 20 mg PO DAILY 12/18/18 03/12/19 03/11/19 History 1 tab Silver Sulfadiazine [Silvadene] 85 gm TP BID #1 cream..g. 12/18/18 03/12/19 03/11/19 Rx 1 Sitagliptin Phosphate [Januvia] 100 mg PO DAILY 12/18/18 03/12/19 03/11/19 History 1 tab Tamsulosin [Flomax] 0.4 mg PO BID 12/18/18 03/12/19 03/11/19 History 1 tab Active Medications Sodium Chloride (Nacl 0.9% 1000 Ml) 1,000 mls @ 42 mls/hr IV DIRECT SHANNON Last Admin: 03/12/19 08:34 Dose: 42 mls/hr Documented by: - Physical exam General appearance: no acute distress Lungs: Normal air movement (with obesity) Heart: Other (bradycardia) Gastrointestinal: obese Extremities: no ischemia, normal temperature, normal color, abnormal (wounds of the right lower extremity) - Brief post op/procedure progress note Date of procedure: 03/12/19 Pre-op diagnosis: Critical limb ischemia of the right lower extremity Post-op diagnosis: same Procedure: 1. Ultrasound-guided access of the right dorsalis pedis 2. Angiography of the right lower extremity (clinical change) 3. Atherectomy of the right popliteal artery with a 1.5 mm solid CSI atherectomy device with angioplasty with a 6 mm x 80 mm iNPACT DCB 4. Atherectomy of the right anterior tibial artery with a 1.5 mm solid CSI atherectomy device with angioplasty with a 3.5 mm x 150 mm angioplasty balloon 5. Atherectomy of the right tibioperoneal trunk and proximal peroneal artery with a 1.5 mm solid CSI atherectomy device with angiolpasty with a 3.5 mm x 100 mm angioplasty balloon, and 3.5 mm x 40 mm angioplasty balloon ultimately requiring stenting of the right tibioperoneal trunk with a 3.5 mm x 26 mm RESOLUTE DUS Anesthesia: MAC Surgeon: VAN ELISE Estimated blood loss: minimal Condition: stable - Hospital course Hospital course: Tolerated procedure without issue. Will monitor for 4 hours and then discharge. Loaded with aspirin and plavix. 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 Status: Acute (2) Diabetes Status: Acute Qualifiers: Diabetes mellitus type: type 2 (3) HLD (hyperlipidemia) Status: Acute Qualifiers: Hyperlipidemia type: mixed hyperlipidemia Qualified Code(s): E78.2 - Mixed hyperlipidemia (4) HTN (hypertension) Status: Acute Qualifiers: Hypertension type: essential hypertension Qualified Code(s): I10 - Essential (primary) hypertension (5) Obesity hypoventilation syndrome Status: Acute Short Stay Discharge Plan Activity: advance as tolerated, other (keep off the right foot as much as possible to offload the heel) Diet: low carbohydrate Wound: keep clean and dry, other (change dressing daily on the top of the foot near the ankle access site) Follow up with: NEEL SIEGEL MD [Primary Care Provider] - 7 Days Forms: Post Arteriogram Instruct
--- NOTE | 2019-03-12 11:56 | Operative Report ---
Operative Report Operative Report: EXAM: 1. Ultrasound-guided access of the right dorsalis pedis 2. Angiography of the right lower extremity (clinical change) 3. Atherectomy of the right popliteal artery with a 1.5 mm solid CSI atherectomy device with angioplasty with a 6 mm x 80 mm iNPACT DCB 4. Atherectomy of the right anterior tibial artery with a 1.5 mm solid CSI atherectomy device with angioplasty with a 3.5 mm x 150 mm angioplasty balloon 5. Atherectomy of the right tibioperoneal trunk and proximal peroneal artery with a 1.5 mm solid CSI atherectomy device with angiolpasty with a 3.5 mm x 100 mm angioplasty balloon, and 3.5 mm x 40 mm angioplasty ; stenting of the right tibioperoneal trunk with a 3.5 mm x 26 mm RESOLUTE SHERRY DATE: 03/12/19 BLOW MOLDING MACHINE OPERATOR: VAN ELISE MD INDICATION: Critical limb ischemia of the right lower extremity in a patient with non-accessible femoral arteries. With plan for tibial revascularization th rough pedal approach.. MEDICATIONS: Please see nursing report for full details. DEVICES: 1.5 mm CSI atherectomy device 6 mm x 80 mm iNPACT DCB 3.5 mm x 150 mm pacific angioplasty balloon 3.5 mm x 100 mm kvng angioplasty balloon 3.5 mm x 40 mm Kvng angioplasty balloon 3.5 mm x 26 mm RESOLUTE SHERRY CONTRAST: Please see geophysical laboratory supervisor report for full details PROCEDURE: The risks, benefits, and alternatives were discussed the patient and his ; written informed consent was obtained. The patient's right lower extremity was prepped and draped in a sterile fashion with specific attention to the right foot. Ultrasound is used to evaluate the right dorsalis pedis which was patent. Under direct ultrasound guidance, the right dorsalis pedis was accessed with a 21-gauge micropuncture needle in a 0.018 inch wire was passed into the anterior tibial artery. Needle was exchanged for the inner portion of a transitional dilator. Radial cocktail was administered. The patient was systemically heparinized in addition to the heparin from the radial cocktail. Throughout the entirety of the case, nitroglycerin was injected through the sheath at intervals of every 3-5 minutes. Digital subtraction angiography was performed demonstrating some spasm in the accessed distal anterior tibial artery. V18 wire was passed into the anterior tibial artery. Transitional dilator was exchanged for a 5/6 glide sheath slender. More nitroglycerin was administered. Digital subtraction angiography was performed demonstrating 30-40% narrowing of the distal anterior tibial artery. The proximal anterior tibial artery had another focal area of 30-40% narrowing. The ostium had 30-40% narrowing. The popliteal artery had 30% narrowing at the midportion of the artery. The tibioperoneal trunk was 70-99% narrowed with a short segment occlusion in the distal tibioperoneal trunk. The proximal peroneal artery had a focal 99% narrowing. Posterior tibial artery was occluded throughout its length with distal reconstitution from the posterior communicating arteries from the hernial artery. Wire was exchanged for a ViperWire. Atherectomy was performed of the popliteal artery and anterior tibial artery and subsequently the popliteal artery was treated with a 6 mm x 80 mm iNPACT balloon and the anterior tibial artery with a 3.5 mm x 150 mm angioplasty balloon. Digital subtraction angiography was performed demonstrating 10-20% residual narrowing of the popliteal artery and less than 10% residual narrowing of the anterior tibial artery. Using series of catheters and wires, the tibioperoneal trunk occlusion was crossed and the wire was passed into the peroneal artery. Digital subtraction angiography was performed confirming position in the peroneal artery. Viperwire was passed into the peroneal artery. Atherectomy was performed of the tibioperoneal trunk and proximal peroneal artery. After atherectomy, 3.5 mm x 100 mm angioplasty balloon was used to perform angioplasty of the tibioperoneal trunk and proximal peroneal artery. After this was performed, digital subtraction angiography was performed demonstrating patency of the peroneal artery and distal and mid tibioperoneal trunk with a focal dissection in the proximal to mid tibioperoneal trunk. This was treated with repeat inflation with a 3.5 mm x 40 mm angioplasty balloon for a prolonged period of time but did not resolve the dissection. 3.5 mm x 26 mm RESOLUTE drug-eluting stent was then deployed in the dissected area and the balloon was then used to perform low pressure angioplasty at 2 areas of possible spasm. Digital subtraction angiography was performed demonstrating patency of the tibioperoneal trunk and proximal peroneal artery with less than 10% residual narrowing. The dissection resolved with stenting. There is now flow into the plantar arteries through the posterior communicating arteries. At this point, all wires, catheters, and sheaths were removed. Pressure was held until hemostasis was achieved. Sterile dressing applied. Nitroglycerin paste applied to the foot. FINDINGS: Please see procedure note above. IMPRESSION: 1. Successful atherectomy, and angioplasty of the right popliteal artery. 2. Successful atherectomy, angioplasty, and stenting of the tibioperoneal trunk and peroneal artery. 3. Successful atherectomy and angioplasty of the anterior tibial artery.
[2019-03-12 14:57] VITALS: BP 134/40
== END 2019-03-12 15:57 | disposition home or self-care (01) ==
LOC: CATHLABREC 06:33
PROVIDERS: ATTEND Radiology Diagnostic Radiology
DX: I70.231 Atherosclerosis of native arteries of right leg with ulceration of thigh (principal); I70.232 Atherosclerosis of native arteries of right leg with ulceration of calf; E11.51 Type 2 diabetes mellitus with diabetic peripheral angiopathy without gangrene; I10 Essential (primary) hypertension; E78.5 Hyperlipidemia, unspecified; I70.234 Atherosclerosis of native arteries of right leg with ulceration of heel and midfoot; E11.42 Type 2 diabetes mellitus with diabetic polyneuropathy; G47.30 Sleep apnea, unspecified; E78.00 Pure hypercholesterolemia, unspecified; Z91.81 History of falling; K21.9 Gastro-esophageal reflux disease without esophagitis; M19.90 Unspecified osteoarthritis, unspecified site; F41.9 Anxiety disorder, unspecified; E66.9 Obesity, unspecified; Z68.42 Body mass index [BMI] 45.0-49.9, adult; Z87.442 Personal history of urinary calculi; Z98.890 Other specified postprocedural states; Z79.01 Long term (current) use of anticoagulants; Z79.899 Other long term (current) drug therapy; Z79.82 Long term (current) use of aspirin; Z87.891 Personal history of nicotine dependence; Z88.8 Allergy status to other drugs, medicaments and biological substances; Z86.73 Personal history of transient ischemic attack (TIA), and cerebral infarction without residual deficits
CPT/HCPCS: 36415; 37225; 37231; 37233; 75710; 76937; 80048; 82962; 85025; 85610; 85730; C1724; C1725; C1769; C1874; C1887; C1894; C2623; J0690; J1100; J1170; J1644; J2001; J2250; J2405; J2704; J7030; Q9967